=== PATIENT | female | born 1975 | race African-American/Black ===

== ENCOUNTER 2024-09-20 17:15 | Inpatient (IN) | payer OTHER ==
[~2024-09-20] VITALS: Ht 165.1 cm; Wt 75.7 kg
[~2024-09-20 17:15] MED LIST: BUDE6HFA IH; CIPR500T5 PO; FLUT1DIS3 IH; HYDR-4009 PO; IPRA3AMP9 NEB; P20 PO
[2024-09-20 18:24] VITALS: PULSE 102; RESP 24; O2SAT 91
[2024-09-20] MEDS: IPRATROPIUM BROMIDE (0.02%) 0.5MG/2.5ML NEB HHN NR (18:29)
[2024-09-20] MEDS: ALBUTEROL (0.083%) 2.5MG/3ML NEB HHN NR (18:29)
[2024-09-20 18:42] VITALS: PULSE 67; RESP 18; O2SAT 98
[2024-09-20 18:44] LABS: BASOPHILS % 0.6 % (0.0-2.0); EOSINOPHILS % 8.1 % (0.0-5.0); HEMATOCRIT. 43.4 % (36.0-48.0); HEMOGLOBIN. 14.1 g/dL (12.0-16.0); LYMPHOCYTES % 23.5 % (20.0-50.0); MEAN CORPUSCULAR HEMOGLOBIN 28.3 pg (28.0-32.0); MEAN CORPUSCULAR HGB CONC 32.4 g/dL (31.0-37.0); MEAN CORPUSCULAR VOLUME 87.2 fL (81.0-99.0); MEAN PLATELET VOLUME 8.4 fl (7.4-10.4); MONOCYTES % 4.3 % (2.0-8.0); NEUTROPHILS % 63.5 % (40.0-76.0); PLATELET 213 x1000/uL (130-400); RED BLOOD CELL COUNT 4.97 mill/uL (4.2-5.4); RED CELL DISTRIBUTION WIDTH 15.6 % (11.6-14.6); WHITE BLOOD COUNT 7.8 x1000/uL (4.5-11.0)
[2024-09-20 18:53] LABS: CHLORIDE 106 mEq/L (98-107); SODIUM 142 mEq/L (136-145)
[2024-09-20 18:54] LABS: CALCIUM 9.8 mg/dL (8.7-10.4); CARBON DIOXIDE 31 mEq/L (21-32)
[2024-09-20] MEDS: METHYLPREDNISOLONE SOD SUCC 125MG/2ML (ACT-O-VIAL) IV NR (18:54)
[2024-09-20] MEDS: HYDROCODONE/ACETAMINOPHEN 5/325MG TABLET PO NR (18:54)
[2024-09-20 18:59] LABS: CREATININE 0.7 mg/dL (0.6-1.0); GLUCOSE 87 mg/dL (70-105); UREA NITROGEN BLOOD 9 mg/dL (9-23)
[2024-09-20 19:03] LABS: ETHANOL BLOOD < 10 mg/dL (<10); TROPONIN I HIGH SENSITIVITY < 4 ng/L (3.0-34)
[2024-09-20] MEDS: MAGNESIUM 2 G PREMIX 50 ML IV NR (19:07)
[2024-09-20 20:03] LABS: D-DIMER 0.21 mg/L FEU (<0.50); INR 1.1; PARTIAL THROMBOPLASTIN TIME 31.9 sec (23.4-31.0); PROTHROMBIN TIME 11.9 sec (9.6-11.0)
[2024-09-20 23:40] VITALS: BP 121/78; PULSE 71; RESP 20; TEMP 36.5848
[2024-09-21] VITALS (9 sets, daily range): BP systolic 116–140; BP diastolic 66–89; PULSE 71–106; RESP 16–20; TEMP 36.05844–36.61404; O2SAT 93–99
[2024-09-21] MEDS ORDERED: SENN-371 (02:08)
[2024-09-21] MEDS ORDERED: HYDR-4001 PO (02:08)
[2024-09-21] MEDS ORDERED: ZOLP10TA2 (02:08)
[2024-09-21] MEDS ORDERED: ALBU18HF2 (02:08)
[2024-09-21] MEDS ORDERED: TRAM50TA3 PO (02:08)
[2024-09-21] MEDS ORDERED: MONT-39 PO (02:08)
[2024-09-21] MEDS: ZOLPIDEM TARTRATE 5MG TABLET PO PRN (02:38)
[2024-09-21] MEDS: HYDROCODONE/ACETAMINOPHEN 10/325MG TABLET PO PRN (02:38)
[2024-09-21] MEDS: METHYLPREDNISOLONE SOD SUCC 40MG/ML (ACT-O-VIAL) IV SCH (05:49)
[2024-09-21] MEDS: ALBUTEROL (0.083%) 2.5MG/3ML NEB HHN SCH (05:50)
[2024-09-21] MEDS: BUDESONIDE 0.5MG/2ML NEB HHN SCH (05:50)
[2024-09-21] MEDS: DOCUSATE SODIUM 250MG CAPSULE PO SCH (08:47)
[2024-09-21] MEDS: ENOXAPARIN 40MG/0.4ML SYR SUBCUT SCH (08:47)
[2024-09-21 12:07] LABS: BASOPHILS % 0.3 % (0.0-2.0); EOSINOPHILS % 0.1 % (0.0-5.0); HEMATOCRIT. 42.8 % (36.0-48.0); HEMOGLOBIN. 13.8 g/dL (12.0-16.0); LYMPHOCYTES % 10.1 % (20.0-50.0); MEAN CORPUSCULAR HEMOGLOBIN 28.1 pg (28.0-32.0); MEAN CORPUSCULAR HGB CONC 32.3 g/dL (31.0-37.0); MONOCYTES % 1.2 % (2.0-8.0); NEUTROPHILS % 88.3 % (40.0-76.0); PLATELET 230 x1000/uL (130-400); RED BLOOD CELL COUNT 4.92 mill/uL (4.2-5.4); RED CELL DISTRIBUTION WIDTH 15.3 % (11.6-14.6); WHITE BLOOD COUNT 5.5 x1000/uL (4.5-11.0)
[2024-09-21 12:24] LABS: CALCIUM 9.6 mg/dL (8.7-10.4); CARBON DIOXIDE 25 mEq/L (21-32); CHLORIDE 105 mEq/L (98-107); SODIUM 139 mEq/L (136-145)
[2024-09-21 12:29] LABS: CREATININE 0.7 mg/dL (0.6-1.0)
[2024-09-21 12:30] LABS: GLUCOSE 203 mg/dL (70-105); UREA NITROGEN BLOOD 11 mg/dL (9-23)
[2024-09-21] MEDS: KETOROLAC 30MG/ML VIAL IV PRN (16:43)
[2024-09-21] MEDS ORDERED: ACETAMINOPHEN 325MG TABLET PO PRN (17:30)
[2024-09-21] MEDS ORDERED: P20 PO (17:44)
[2024-09-21] MEDS: MONTELUKAST SODIUM 10MG TABLET PO SCH (18:03)
[2024-09-21] MEDS: FLUTICASONE PROPIONATE 50MCG/SPRAY BOTTLE BOTHNSTRLS SCH (22:28)
[2024-09-22] VITALS (11 sets, daily range): BP systolic 120–135; BP diastolic 71–80; PULSE 67–91; RESP 18–24; TEMP 29.4468–36.6696; O2SAT 98–100
[2024-09-22 10:11] LABS: CLARITY URINE CLEAR (CLEAR); COLOR URINE DARK YELLOW (YELLOW); GLUCOSE URINE NEGATIVE (NEGATIVE); KETONES URINE TRACE (NEGATIVE); LEUKOCYTE ESTERASE URINE NEGATIVE (NEGATIVE); NITRITE URINE NEGATIVE (NEGATIVE); OCCULT BLOOD URINE NEGATIVE (NEGATIVE); PH URINE 5.5 (4.5-8.0); PROTEIN URINE TRACE (NEGATIVE); SPECIFIC GRAVITY URINE 1.043 (1.005-1.030)
[2024-09-22 10:32] LABS: *AMPHETAMINES SCREEN URINE NEGATIVE (NEGATIVE); *BARBITURATES SCREEN URINE NEGATIVE (NEGATIVE); *BENZODIAZEPINES SCREEN URINE PRESUMPTIVE POSITIVE (NEGATIVE); *COCAINE SCREEN URINE NEGATIVE (NEGATIVE); CANNABINOID URINE SCREEN NEGATIVE (NEGATIVE); ECSTASY MDMA SCREEN URINE NEGATIVE (NEGATIVE); METHADONE URINE SCREEN NEGATIVE (NEGATIVE); OPIATES URINE SCREEN PRESUMPTIVE POSITIVE (NEGATIVE); PHENCYCLIDINE URINE SCREEN NEGATIVE (NEGATIVE)
[2024-09-22 11:01] LABS: MUCUS URINE 1+ /lpf (< = 2+); SQUAMOUS EPITHELIAL CELL URINE 1+ /lpf (RARE/1+)
[2024-09-22 11:02] LABS: BACTERIA URINE TRACE; RBC URINE 0-2 /hpf (0-2); WBC URINE 0-2 /hpf (0-2)
[2024-09-22] MEDS: TERBUTALINE SULFATE 1MG/ML VIAL SUBCUT NR (17:20)
[2024-09-22] MEDS: LORAZEPAM 0.5MG TABLET PO NR (18:18)
[2024-09-22] MEDS: PREDNISONE 20MG TABLET PO SCH (22:12)
[2024-09-23] VITALS: BP 135/78; PULSE 85; RESP 18; TEMP 36.55848; O2SAT 98
== END 2024-09-23 05:35 | disposition left against medical advice (07) | DRG 189 ==
LOC: ER 17:15 → 7EST 20:45 → EDBEDREQ 20:49
PROVIDERS: ADMIT Internal Medicine; ATTEND Internal Medicine
DX: J96.01 Acute respiratory failure with hypoxia (principal); J44.1 Chronic obstructive pulmonary disease with (acute) exacerbation; J96.02 Acute respiratory failure with hypercapnia; F17.210 Nicotine dependence, cigarettes, uncomplicated; M54.9 Dorsalgia, unspecified; Z53.29 Procedure and treatment not carried out because of patient's decision for other reasons; M48.00 Spinal stenosis, site unspecified; D86.0 Sarcoidosis of lung; G89.29 Other chronic pain
CPT/HCPCS: 36415; 71045; 80048; 80305; 80320; 81003; 83880; 84484; 85025; 85379; 93005; 94070; 94640; 99291; J1650; J1885; J2919; J2920; J3105; J3475; J7512; J7626; G0480

== ENCOUNTER 2025-01-10 13:59 | Emergency (ER) | payer OTHER ==
[~2025-01-10] VITALS: Ht 165.1 cm; Wt 66.0 kg
[~2025-01-10 13:59] MED LIST changes: +ALBU18HF2; +HYDR-4001 PO; +MONT-39 PO; +SENN-371; +TRAM50TA3 PO; +ZOLP10TA2
[2025-01-10 14:06] VITALS: BP 128/83; PULSE 115; RESP 16; TEMP 36.9; O2SAT 96
[2025-01-10] MEDS: MECLIZINE 25MG TABLET PO STA (15:03)
[2025-01-10] MEDS ORDERED: MECL-299 MT (17:17)
== END 2025-01-10 17:34 | disposition home or self-care (01) ==
LOC: ER 13:59
DX: R42 Dizziness and giddiness (principal); I10 Essential (primary) hypertension; J44.89 Other specified chronic obstructive pulmonary disease; Z79.899 Other long term (current) drug therapy; Z98.890 Other specified postprocedural states
CPT/HCPCS: 99283; J8597